=== PATIENT | female | born 1955 | race Caucasian/White ===

== ENCOUNTER 2024-04-23 08:25 | Inpatient (IN) | payer MEDICARE, OTHER ==
[~2024-04-23] VITALS: Ht 160 cm; Wt 69.4 kg
[2024-04-23] MEDS ORDERED: dexaMETHasone SOD PHOSPHATE 1 ML ONE (10:49)
[2024-04-23] MEDS ORDERED: OXYMETAZOLINE HCL NASAL SPRAY 30 ML BOTTLE NS ONE (10:49)
[2024-04-23] MEDS ORDERED: LIDOCAINE 2%-EPI 1:100,000 30 ML VIAL ONE (10:49)
[2024-04-23] MEDS ORDERED: VANCOMYCIN 1 GM VIAL ONE (10:50)
[2024-04-23] MEDS ORDERED: IV NS 0.9% 1,000 ML BAG IV PRN (14:30)
[2024-04-23] MEDS ORDERED: IV NS 0.9% 1,000 ML IV PRN (14:30)
[2024-04-23] MEDS: IV NS 0.9% 1,000 ML IV PRN (15:03)
[2024-04-23 16:00] VITALS: BP 105/57; TEMP 97.6; O2SAT 96
[2024-04-23] MEDS ORDERED: HYDROMORPHONE 1 MG/1 ML DISP.SYRIN IV PRN (16:30)
[2024-04-23] MEDS ORDERED: ACETAMINOPHEN 325 MG TABLET PO PRN (16:30)
[2024-04-23] MEDS ORDERED: ONDANSETRON HCL/PF 4 MG/2 ML VIAL IV PRN (16:30)
[2024-04-23] MEDS ORDERED: METO-357 PO (17:09)
[2024-04-23] MEDS ORDERED: ACET-73 PO (17:09)
[2024-04-23] MEDS ORDERED: CHOL200026 PO (17:09)
[2024-04-23] MEDS ORDERED: LORA10TA7 PO (17:09)
[2024-04-23] MEDS ORDERED: FERR325T23 PO (17:09)
[2024-04-23] MEDS ORDERED: ATOR40TA PO (17:09)
[2024-04-23] MEDS ORDERED: EZET10TA32 PO (17:09)
[2024-04-23] MEDS ORDERED: ASPI-1420 PO (17:09)
[2024-04-23] MEDS ORDERED: EMPA10TA PO (17:09)
[2024-04-23] MEDS ORDERED: DICL100G26 TP (17:09)
[2024-04-23] MEDS ORDERED: FLUT16SP BNOSTRILS (17:09)
[2024-04-23] MEDS ORDERED: CYCL30DR EACHEYE (17:09)
[2024-04-23] MEDS ORDERED: TICA90TA PO (17:09)
[2024-04-23] MEDS ORDERED: CALC-1276 PO (17:09)
[2024-04-23] MEDS ORDERED: OMEP40CA21 PO (17:09)
[2024-04-23] MEDS: PANTOPRAZOLE 40 MG TABLET.DR PO PRN (17:57)
[2024-04-23 20:00] VITALS: BP 95/48; TEMP 97.7; O2SAT 94
[2024-04-23] MEDS: VANCOMYCIN 1 GM in IV D5W 250 ML IV SCH (22:45)
[2024-04-24] MEDS ORDERED: ACETAMINOPHEN ES 500 MG TABLET PO PRN (08:00)
[2024-04-24] MEDS ORDERED: FLUTICASONE PROPIONATE 16 GM BOTTLE NS PRN (08:00)
[2024-04-24] MEDS: PANTOPRAZOLE 40 MG TABLET.DR PO SCH (08:00)
[2024-04-24] MEDS ORDERED: HOME MED MISCELLANEOUS XX SCH ×2 (08:00)
[2024-04-24] MEDS ORDERED: DICLOFENAC TOPICAL 100 GM TUBE TP PRN (08:00)
[2024-04-24] MEDS: TICAGRELOR 90 MG TABLET PO SCH (08:17)
[2024-04-24] MEDS: ASPIRIN EC 81 MG TABLET.DR PO SCH (08:17)
[2024-04-24] MEDS: LORATADINE 10 MG TABLET PO SCH (08:18)
[2024-04-24] MEDS: CALCIUM CARB 250MG /VITAMIN D 1 UDTAB PO SCH (08:18)
[2024-04-24] MEDS: FERROUS SULFATE (325 MG) 325 MG/TAB TABLET PO SCH (08:18)
[2024-04-24] MEDS: ATORVASTATIN 40 MG TABLET PO SCH (08:18)
[2024-04-24] MEDS: CHOLECALCIFEROL 1,000 UNIT TABLET (VIT D3) PO SCH (08:19)
[2024-04-24] MEDS: EZETIMIBE 10 MG TABLET PO SCH (08:19)
[2024-04-24] MEDS: METOPROLOL SUCCINATE 50 MG TAB.SR.24H PO SCH (08:19)
[2024-04-24 08:24] VITALS: BP 120/68; TEMP 98.2; O2SAT 94
== END 2024-04-24 09:00 | disposition home or self-care (01) | DRG 496 ==
LOC: DS 08:25 → MED 17:34
PROVIDERS: ADMIT Nurse Practitioner Acute Care; ATTEND Dentist Oral and Maxillofacial Surgery
PROC: 0NPW04Z Removal of Internal Fixation Device from Facial Bone, Open Approach (ICD-10-PCS; principal; 2024-04-23)
PROC: 0NPW07Z Removal of Autologous Tissue Substitute from Facial Bone, Open Approach (ICD-10-PCS; 2024-04-23)
PROC: 0NUV07Z Supplement Left Mandible with Autologous Tissue Substitute, Open Approach (ICD-10-PCS; 2024-04-23)
PROC: 0NBR0ZZ Excision of Maxilla, Open Approach (ICD-10-PCS; 2024-04-23)
PROC: 0NBV0ZX Excision of Left Mandible, Open Approach, Diagnostic (ICD-10-PCS; 2024-04-23)
PROC: 0NHV04Z Insertion of Internal Fixation Device into Left Mandible, Open Approach (ICD-10-PCS; 2024-04-23)
DX: T84.69XA Infection and inflammatory reaction due to internal fixation device of other site, initial encounter (principal); S02.40DK Maxillary fracture, left side, subsequent encounter for fracture with nonunion; S02.69XK Fracture of mandible of other specified site, subsequent encounter for fracture with nonunion; T81.83XA Persistent postprocedural fistula, initial encounter; Y83.8 Other surgical procedures as the cause of abnormal reaction of the patient, or of later complication, without mention of misadventure at the time of the procedure; Y92.009 Unspecified place in unspecified non-institutional (private) residence as the place of occurrence of the external cause; M27.2 Inflammatory conditions of jaws; I25.10 Atherosclerotic heart disease of native coronary artery without angina pectoris; I10 Essential (primary) hypertension; E78.5 Hyperlipidemia, unspecified; M19.90 Unspecified osteoarthritis, unspecified site; Z95.5 Presence of coronary angioplasty implant and graft; X58.XXXD Exposure to other specified factors, subsequent encounter
CPT/HCPCS: 82962-TC; 88305-TC; 88311-TC; A4223; C1713; G0378; J0690; J1100; J2704; J3370; J3490; J7030; J7060